=== PATIENT | male | born 1965 | race Caucasian/White ===

== ENCOUNTER 2021-10-06 12:44 | Inpatient (IN) | payer SELFPAY ==
[~2021-10-06] VITALS: Ht 175.3 cm; Wt 70.6 kg
[2021-10-06] MEDS: dilTIAZem 125mg/125ml BAG KIT 125 ML IV ONE ×2 (13:20→13:35)
[2021-10-06] MEDS ORDERED: dilTIAZem HCL 50 MG/10 ML VIAL IV ONE (13:24)
[2021-10-06] MEDS ORDERED: dilTIAZem 25 MG/5 ML VIAL IV ONE (13:30)
[2021-10-06] MEDS ORDERED: dilTIAZem 125mg/125ml BAG KIT 125 ML IV ONE (13:30)
[2021-10-06 14:24] LABS: Albumin 3.1 g/dL (3.4-5.0); Calcium 8.5 mg/dL (8.5-10.1); Potassium 3.9 mmol/L (3.5-5.1)
[2021-10-06 14:28] LABS: Bilirubin, Total 1.2 mg/dL (0.2-1.0)
[2021-10-06] MEDS ORDERED: SODIUM CHLORIDE 0.9% 500 ML IV ONE (14:30)
[2021-10-06 15:47] LABS: Basophils # (auto) 0.1 10 ^3/uL (0-0.2); Basophils % (auto) 0.4 % (0.0-2.0); Eosinophils # (auto) 0 10 ^3/uL (0-0.8); Hemoglobin 16.8 g/dL (13.5-17.5); Lymphocytes # (auto) 1.3 10 ^3/uL (0.4-5.4); Lymphocytes % (auto) 9.1 % (10.0-50.0); Mean Corpuscular Hemoglobin 27.6 pg (28.0-32.0); Mean Corpuscular Hgb Conc. 31.1 g/dL (32.0-36.0); Mean Corpuscular Volume 88.9 fL (80.0-100.0); Monocytes # (auto) 1.2 10 ^3/uL (0-1.3); Monocytes % (auto) 8.3 % (0.0-12.0); Neutrophils # (auto) 11.5 10 ^3/uL (1.6-8.6); Neutrophils % (auto) 82.2 % (37.0-80.0); Nucleated Red Blood Cells % 0.1 %; Red Blood Cells 6.08 10^6/uL (4.5-5.90); Red Cell Distribution Width 15.9 % (11.8-14.3)
[2021-10-06] MEDS ORDERED: ENOXAPARIN SOD 100 MG/1 ML SYRINGE SC ONE (21:30)
[2021-10-06] MEDS ORDERED: TEMAZEPAM 15 MG CAP PO PRN (22:00)
[2021-10-06] MEDS ORDERED: ONDANSETRON HCL 4 MG/2 ML VIAL IV PRN (22:00)
[2021-10-06] MEDS ORDERED: ALBUTEROL SULF 2.5 MG/0.5ML(0.5%) NEB SOLN NEB PRN (22:00)
[2021-10-06] MEDS ORDERED: cefTRIAXone 1GM/50ML D5W 50 ML IV ONE (22:00)
[2021-10-06] MEDS ORDERED: ACETAMINOPHEN 325 MG TAB PO PRN (22:00)
[2021-10-06] MEDS: dilTIAZem 125mg/125ml BAG KIT 100 ML IV SCH (22:21)
[2021-10-06 22:31] VITALS: BP 113/85
[2021-10-06] MEDS: ATORVASTATIN 20 MG TAB PO SCH (22:48)
[2021-10-06] MEDS ORDERED: IOHEXOL 350 MG/ML 100ML IJ ONE (23:22)
[2021-10-06] MEDS ORDERED: NITROGLYCERIN 0.4 MG SL TAB SL PRN (23:30)
[2021-10-06] MEDS ORDERED: MORPHINE SULFATE INJ 2 MG/ml SYRG IV PRN (23:30)
[2021-10-06 23:48] LABS: Lactic Acid w/Reflex 2.4 mmol/L (0.4-2.0)
[2021-10-07] VITALS (86 sets, daily range): BP systolic 87–136; BP diastolic 55–100
[2021-10-07] MEDS ORDERED: METF-370 PO (02:27)
[2021-10-07] MEDS ORDERED: BISA-65 PO (02:32)
[2021-10-07] MEDS ORDERED: POTA1TAB4 PO ×2 (02:34→02:35)
[2021-10-07] MEDS ORDERED: DIGO0.25 PO (02:36)
[2021-10-07] MEDS ORDERED: TAMS0.4C36 PO (02:36)
[2021-10-07] MEDS ORDERED: ALLO300T2 PO (02:42)
[2021-10-07] MEDS ORDERED: ATOR20TA50 PO (02:42)
[2021-10-07] MEDS ORDERED: LISI-716 PO (02:42)
[2021-10-07] MEDS ORDERED: DABI150C5 PO (02:42)
[2021-10-07] MEDS: dilTIAZem 125mg/125ml BAG KIT 100 ML IV SCH ×3 (04:02→20:51)
[2021-10-07 05:00] LABS: Basophils # (auto) 0.1 10 ^3/uL (0-0.2); Basophils % (auto) 0.6 % (0.0-2.0); Eosinophils # (auto) 0 10 ^3/uL (0-0.8); Eosinophils % (auto) 0.1 % (0.0-7.0); Hematocrit 46.8 % (41.0-53.0); Lymphocytes # (auto) 1.2 10 ^3/uL (0.4-5.4); Lymphocytes % (auto) 15.2 % (10.0-50.0); Mean Corpuscular Hemoglobin 28.3 pg (28.0-32.0); Mean Corpuscular Hgb Conc. 32.1 g/dL (32.0-36.0); Mean Corpuscular Volume 88.1 fL (80.0-100.0); Monocytes # (auto) 0.8 10 ^3/uL (0-1.3); Monocytes % (auto) 10.6 % (0.0-12.0); Neutrophils # (auto) 5.9 10 ^3/uL (1.6-8.6); Neutrophils % (auto) 73.5 % (37.0-80.0); Red Blood Cells 5.32 10^6/uL (4.5-5.90); Red Cell Distribution Width 15.5 % (11.8-14.3)
[2021-10-07 05:09] LABS: Albumin 2.7 g/dL (3.4-5.0); BUN/Creatinine Ratio 18.8; Calcium 8.6 mg/dL (8.5-10.1); Potassium 3.6 mmol/L (3.5-5.1)
[2021-10-07 05:12] LABS: Bilirubin, Total 1.1 mg/dL (0.2-1.0); Total Protein 5.8 g/dL (6.4-8.2)
[2021-10-07] MEDS: ALBUTEROL SULF HFA 90MCG INH 200DOSE IN PRN ×2 (06:17→19:10)
[2021-10-07] MEDS: cefTRIAXone 1GM/50ML D5W 50 ML IV SCH (08:55)
[2021-10-07] MEDS ORDERED: ENOXAPARIN SOD 40 MG/0.4 ML SYRINGE SC SCH ×2 (10:00→22:00)
[2021-10-07] MEDS ORDERED: DexAMETHasone SOD PHOS 10MG/1ML VIAL INJ IV ONE (10:15)
[2021-10-07] MEDS ORDERED: REMDESIVIR PER PHARMACY 0 ML IV SCH (10:15)
[2021-10-07] MEDS: ASPirin 81 mg TAB PO SCH (10:21)
[2021-10-07] MEDS: PANTOPRAZOLE 40 MG TAB PO SCH (10:22)
[2021-10-07] MEDS ORDERED: POTASSIUM EFFERVESENT TAB 25 MEQ PO ONE (14:45)
[2021-10-07] MEDS ORDERED: FUROSEMIDE 40 MG/4 ML VIAL IV ONE (14:45)
[2021-10-07] MEDS ORDERED: METOPROLOL TARTRATE 1MG/1ML-5ML VIAL IV ONE (14:45)
[2021-10-07] MEDS ORDERED: REMDESIVIR 200 MG in NS 210ml LOADING DOSE ADULT IV ONE (15:00)
[2021-10-07 15:30] LABS: Magnesium 1.9 mg/dL (1.6-2.6)
[2021-10-07] MEDS ORDERED: MAGNESIUM SULFATE 1GM/100ML 100 ML IV ONE (15:45)
[2021-10-07] MEDS ORDERED: DIGOXIN (250MCG/ML) 2 ML AMPULE IV ONE (15:45)
[2021-10-07 18:23] LABS: Alcohol, Urine < 3.0 mg/dL (0-10); Amphetamine Screen, Urine NEGATIVE (NEGATIVE); Barbiturate Scree,Urine NEGATIVE (NEGATIVE); Benzodiazephine Screen, Urine NEGATIVE (NEGATIVE); Cannabinoid Screen, Urine NEGATIVE (NEGATIVE); Cocaine Screen, Urine NEGATIVE (NEGATIVE); Opiate Scree,Urine NEGATIVE (NEGATIVE); Phencyclidine Screen, Urine NEGATIVE (NEGATIVE)
[2021-10-07] MEDS: DIGOXIN (250MCG/ML) 2 ML AMPULE IV SCH ×2 (18:53→23:30)
[2021-10-07] MEDS: ATORVASTATIN 20 MG TAB PO SCH (22:04)
[2021-10-07] MEDS: CARVEDILOL 3.125 MG TAB PO SCH (22:05)
[2021-10-07] MEDS: ENOXAPARIN SOD 150 MG/1 ML SYRINGE SC SCH (22:07)
[2021-10-08] VITALS (23 sets, daily range): BP systolic 90–174; BP diastolic 54–113
[2021-10-08] MEDS: DIGOXIN (250MCG/ML) 2 ML AMPULE IV SCH (05:00)
[2021-10-08 05:14] LABS: Basophils # (auto) 0 10 ^3/uL (0-0.2); Basophils % (auto) 0.2 % (0.0-2.0); Eosinophils # (auto) 0 10 ^3/uL (0-0.8); Hematocrit 43.4 % (41.0-53.0); Hemoglobin 13.9 g/dL (13.5-17.5); Lymphocytes # (auto) 0.7 10 ^3/uL (0.4-5.4); Lymphocytes % (auto) 10.4 % (10.0-50.0); Mean Corpuscular Hemoglobin 28.3 pg (28.0-32.0); Mean Corpuscular Hgb Conc. 31.9 g/dL (32.0-36.0); Mean Corpuscular Volume 88.7 fL (80.0-100.0); Monocytes # (auto) 0.6 10 ^3/uL (0-1.3); Neutrophils # (auto) 5.2 10 ^3/uL (1.6-8.6); Neutrophils % (auto) 80.4 % (37.0-80.0); Red Blood Cells 4.89 10^6/uL (4.5-5.90); Red Cell Distribution Width 15.9 % (11.8-14.3); White Blood Cell 6.5 10^3/uL (4.4-10.8)
[2021-10-08 05:31] LABS: Potassium 4.2 mmol/L (3.5-5.1)
[2021-10-08 05:36] LABS: BUN/Creatinine Ratio 24.4; Calcium 8.5 mg/dL (8.5-10.1)
[2021-10-08] MEDS: FUROSEMIDE 20 MG/2 ML VIAL IV SCH ×2 (06:33→18:00)
[2021-10-08] MEDS: cefTRIAXone 1GM/50ML D5W 50 ML IV SCH (09:00)
[2021-10-08] MEDS: LISINOPRIL 5 MG TAB PO SCH (10:00)
[2021-10-08] MEDS: DexAMETHasone SOD PHOS 10MG/1ML VIAL INJ IV SCH (10:00)
[2021-10-08] MEDS: PANTOPRAZOLE 40 MG TAB PO SCH (10:00)
[2021-10-08] MEDS: ASPirin 81 mg TAB PO SCH (10:00)
[2021-10-08] MEDS: ENOXAPARIN SOD 150 MG/1 ML SYRINGE SC SCH ×2 (10:00→21:22)
[2021-10-08] MEDS: DAPAGLIFLOZIN 5 MG TAB PO SCH (10:00)
[2021-10-08] MEDS: CARVEDILOL 3.125 MG TAB PO SCH ×2 (10:00→21:20)
[2021-10-08] MEDS: REMDESIVIR 100mg 100 MG in SODIUM CHL 0.9% 230 ML IV SCH (15:00)
[2021-10-08] MEDS ORDERED: DEXTROSE (50%) 50ML SYRG IV PRN (20:15)
[2021-10-08] MEDS: ATORVASTATIN 20 MG TAB PO SCH (21:21)
[2021-10-08] MEDS: ACCU-CHEK COMFORT CURVE STRIP VI SCH (21:21)
[2021-10-08] MEDS: InsuLIN REG 1unit/0.01ml Soln (100units/ml) SC SCH (21:23)
[2021-10-09] VITALS (18 sets, daily range): BP systolic 103–172; BP diastolic 53–122
[2021-10-09 05:23] LABS: Basophils # (auto) 0 10 ^3/uL (0-0.2); Basophils % (auto) 0.2 % (0.0-2.0); Eosinophils # (auto) 0 10 ^3/uL (0-0.8); Hematocrit 45.2 % (41.0-53.0); Hemoglobin 14.7 g/dL (13.5-17.5); Lymphocytes % (auto) 12.1 % (10.0-50.0); Mean Corpuscular Hemoglobin 28.5 pg (28.0-32.0); Mean Corpuscular Hgb Conc. 32.6 g/dL (32.0-36.0); Mean Corpuscular Volume 87.3 fL (80.0-100.0); Monocytes # (auto) 0.5 10 ^3/uL (0-1.3); Monocytes % (auto) 6.4 % (0.0-12.0); Neutrophils # (auto) 6.8 10 ^3/uL (1.6-8.6); Neutrophils % (auto) 81.3 % (37.0-80.0); Red Blood Cells 5.17 10^6/uL (4.5-5.90); Red Cell Distribution Width 15.4 % (11.8-14.3); White Blood Cell 8.3 10^3/uL (4.4-10.8)
[2021-10-09 05:44] LABS: Albumin 2.4 g/dL (3.4-5.0); Calcium 8.5 mg/dL (8.5-10.1); Potassium 3.8 mmol/L (3.5-5.1)
[2021-10-09 05:49] LABS: BUN/Creatinine Ratio 26.3; Bilirubin, Total 0.7 mg/dL (0.2-1.0); Total Protein 5.1 g/dL (6.4-8.2)
[2021-10-09] MEDS: InsuLIN REG 1unit/0.01ml Soln (100units/ml) SC SCH ×4 (06:39→22:16)
[2021-10-09] MEDS: ACCU-CHEK COMFORT CURVE STRIP VI SCH ×4 (06:39→22:18)
[2021-10-09] MEDS: FUROSEMIDE 20 MG/2 ML VIAL IV SCH ×2 (06:40→16:38)
[2021-10-09] MEDS ORDERED: hydrALAZINE HCL 20 MG/ML VL IV PRN (07:45)
[2021-10-09] MEDS: metFORMIN HYDROCHLORIDE 500 MG TAB PO SCH ×2 (08:55→16:38)
[2021-10-09] MEDS: cefTRIAXone 1GM/50ML D5W 50 ML IV SCH (09:00)
[2021-10-09] MEDS ORDERED: POTASSIUM CHL 20 Meq TABLET PO ONE (10:00)
[2021-10-09] MEDS: DAPAGLIFLOZIN 5 MG TAB PO SCH (10:00)
[2021-10-09] MEDS: ASPirin 81 mg TAB PO SCH (10:45)
[2021-10-09] MEDS: DexAMETHasone SOD PHOS 10MG/1ML VIAL INJ IV SCH (10:45)
[2021-10-09] MEDS: DIGOXIN 0.125 MG TAB PO SCH (10:46)
[2021-10-09] MEDS: PANTOPRAZOLE 40 MG TAB PO SCH (10:51)
[2021-10-09] MEDS: ENOXAPARIN SOD 150 MG/1 ML SYRINGE SC SCH (10:51)
[2021-10-09] MEDS: CARVEDILOL 3.125 MG TAB PO SCH ×3 (10:51→22:19)
[2021-10-09] MEDS: LISINOPRIL 5 MG TAB PO SCH (10:51)
[2021-10-09] MEDS: REMDESIVIR 100mg 100 MG in SODIUM CHL 0.9% 230 ML IV SCH (14:46)
[2021-10-09] MEDS: ALBUTEROL SULF HFA 90MCG INH 200DOSE IN PRN (18:41)
[2021-10-09] MEDS: ATORVASTATIN 20 MG TAB PO SCH (21:12)
[2021-10-09] MEDS: ENOXAPARIN SOD 120 MG/0.8 ML SYRINGE SC SCH (22:16)
[2021-10-10] VITALS (18 sets, daily range): BP systolic 111–141; BP diastolic 59–97
[2021-10-10 05:11] LABS: Basophils # (auto) 0 10 ^3/uL (0-0.2); Basophils % (auto) 0.3 % (0.0-2.0); Eosinophils # (auto) 0 10 ^3/uL (0-0.8); Hematocrit 45.1 % (41.0-53.0); Hemoglobin 14.8 g/dL (13.5-17.5); Lymphocytes # (auto) 1.1 10 ^3/uL (0.4-5.4); Lymphocytes % (auto) 13.3 % (10.0-50.0); Mean Corpuscular Hemoglobin 28.9 pg (28.0-32.0); Mean Corpuscular Hgb Conc. 32.7 g/dL (32.0-36.0); Mean Corpuscular Volume 88.2 fL (80.0-100.0); Monocytes # (auto) 0.7 10 ^3/uL (0-1.3); Monocytes % (auto) 8.4 % (0.0-12.0); Neutrophils # (auto) 6.6 10 ^3/uL (1.6-8.6); Nucleated Red Blood Cells % 0.1 %; Red Blood Cells 5.12 10^6/uL (4.5-5.90); Red Cell Distribution Width 15.5 % (11.8-14.3); White Blood Cell 8.5 10^3/uL (4.4-10.8)
[2021-10-10 05:32] LABS: Potassium 3.6 mmol/L (3.5-5.1)
[2021-10-10 05:38] LABS: BUN/Creatinine Ratio 21.4; Calcium 8.6 mg/dL (8.5-10.1)
[2021-10-10] MEDS: FUROSEMIDE 20 MG/2 ML VIAL IV SCH ×2 (06:23→18:00)
[2021-10-10] MEDS: InsuLIN REG 1unit/0.01ml Soln (100units/ml) SC SCH ×4 (06:23→21:50)
[2021-10-10] MEDS: ACCU-CHEK COMFORT CURVE STRIP VI SCH ×4 (06:24→21:47)
[2021-10-10] MEDS: metFORMIN HYDROCHLORIDE 500 MG TAB PO SCH ×2 (09:08→18:00)
[2021-10-10] MEDS: cefTRIAXone 1GM/50ML D5W 50 ML IV SCH (09:09)
[2021-10-10] MEDS ORDERED: REMDESIVIR 100mg 100 MG in SODIUM CHL 0.9% 230 ML IV SCH (12:00)
[2021-10-10] MEDS ORDERED: DIGO1TAB48 PO (12:08)
[2021-10-10] MEDS ORDERED: CAR3125T PO (12:08)
[2021-10-10] MEDS ORDERED: FURO1TAB33 PO (12:09)
[2021-10-10] MEDS ORDERED: LISI-275 PO (12:09)
[2021-10-10] MEDS ORDERED: ASPI1TAB20 PO (12:10)
[2021-10-10] MEDS: REMDESIVIR 100mg 100 MG in SODIUM CHL 0.9% 230 ML IV SCH (14:33)
[2021-10-10] MEDS: DexAMETHasone SOD PHOS 10MG/1ML VIAL INJ IV SCH (15:34)
[2021-10-10] MEDS: DAPAGLIFLOZIN 5 MG TAB PO SCH (15:34)
[2021-10-10] MEDS: ASPirin 81 mg TAB PO SCH (15:34)
[2021-10-10] MEDS: PANTOPRAZOLE 40 MG TAB PO SCH (15:35)
[2021-10-10] MEDS: DIGOXIN 0.125 MG TAB PO SCH (15:35)
[2021-10-10] MEDS: LISINOPRIL 5 MG TAB PO SCH (15:36)
[2021-10-10] MEDS: ENOXAPARIN SOD 120 MG/0.8 ML SYRINGE SC SCH ×2 (15:37→21:47)
[2021-10-10] MEDS: ATORVASTATIN 20 MG TAB PO SCH (21:46)
[2021-10-10] MEDS: CARVEDILOL 3.125 MG TAB PO SCH (21:47)
[2021-10-11] VITALS: BP_SYST 111; BP_SYST 123; BP_DIAS 59; BP_DIAS 80
[2021-10-11 02:00] VITALS: BP 118/55
[2021-10-11 04:00] VITALS: BP_SYST 112; BP_SYST 118; BP_DIAS 55; BP_DIAS 59
[2021-10-11 04:07] LABS: Basophils # (auto) 0 10 ^3/uL (0-0.2); Basophils % (auto) 0.3 % (0.0-2.0); Eosinophils # (auto) 0 10 ^3/uL (0-0.8); Eosinophils % (auto) 0.1 % (0.0-7.0); Hematocrit 49.3 % (41.0-53.0); Hemoglobin 15.8 g/dL (13.5-17.5); Lymphocytes # (auto) 1.5 10 ^3/uL (0.4-5.4); Lymphocytes % (auto) 15.1 % (10.0-50.0); Mean Corpuscular Hemoglobin 28.1 pg (28.0-32.0); Mean Corpuscular Volume 87.6 fL (80.0-100.0); Monocytes # (auto) 0.8 10 ^3/uL (0-1.3); Monocytes % (auto) 8.4 % (0.0-12.0); Neutrophils # (auto) 7.4 10 ^3/uL (1.6-8.6); Neutrophils % (auto) 76.1 % (37.0-80.0); Red Blood Cells 5.63 10^6/uL (4.5-5.90); Red Cell Distribution Width 15.4 % (11.8-14.3); White Blood Cell 9.7 10^3/uL (4.4-10.8)
[2021-10-11 04:37] LABS: Potassium 3.7 mmol/L (3.5-5.1)
[2021-10-11 04:49] LABS: Albumin 2.4 g/dL (3.4-5.0); BUN/Creatinine Ratio 24.3; Bilirubin, Total 0.5 mg/dL (0.2-1.0); Calcium 8.7 mg/dL (8.5-10.1)
[2021-10-11 06:00] VITALS: BP 128/94
[2021-10-11] MEDS: FUROSEMIDE 20 MG/2 ML VIAL IV SCH (06:14)
[2021-10-11] MEDS: ACCU-CHEK COMFORT CURVE STRIP VI SCH ×2 (06:15→11:30)
[2021-10-11] MEDS: InsuLIN REG 1unit/0.01ml Soln (100units/ml) SC SCH ×2 (06:15→11:30)
[2021-10-11 08:00] VITALS: BP 128/88
[2021-10-11] MEDS: metFORMIN HYDROCHLORIDE 500 MG TAB PO SCH (08:01)
[2021-10-11] MEDS: cefTRIAXone 1GM/50ML D5W 50 ML IV SCH (08:01)
[2021-10-11] MEDS: ASPirin 81 mg TAB PO SCH (09:53)
[2021-10-11] MEDS: DIGOXIN 0.125 MG TAB PO SCH (09:54)
[2021-10-11] MEDS: PANTOPRAZOLE 40 MG TAB PO SCH (09:54)
[2021-10-11] MEDS: CARVEDILOL 3.125 MG TAB PO SCH (09:55)
[2021-10-11] MEDS: DAPAGLIFLOZIN 5 MG TAB PO SCH (09:55)
[2021-10-11] MEDS: LISINOPRIL 5 MG TAB PO SCH (09:56)
[2021-10-11] MEDS: DexAMETHasone SOD PHOS 10MG/1ML VIAL INJ IV SCH (09:56)
[2021-10-11] MEDS: ENOXAPARIN SOD 120 MG/0.8 ML SYRINGE SC SCH (09:56)
[2021-10-11] MEDS: REMDESIVIR 100mg 100 MG in SODIUM CHL 0.9% 230 ML IV SCH (10:15)
[2021-10-11 11:56] VITALS: BP 126/84
[2021-10-11] MEDS: APIXABAN 5 MG TAB PO SCH ×2 (12:25→12:31)
[2021-10-11] MEDS ORDERED: ENOXAPARIN SOD 80 MG/0.8ML SYRINGE SC SCH (22:00)
== END 2021-10-11 14:31 | disposition left against medical advice (07) | DRG 177 ==
LOC: ER 12:44 → TELE 23:21 → DOU IN ICU 23:48
PROVIDERS: ADMIT Nurse Practitioner; ATTEND Internal Medicine Pulmonary Disease
PROC: XW033E5 Introduction of Remdesivir Anti-infective into Peripheral Vein, Percutaneous Approach, New Technology Group 5 (ICD-10-PCS; principal; 2021-10-07)
DX: U07.1 COVID-19 (principal); I21.4 Non-ST elevation (NSTEMI) myocardial infarction; I50.23 Acute on chronic systolic (congestive) heart failure; J12.82 Pneumonia due to coronavirus disease 2019; J96.01 Acute respiratory failure with hypoxia; J81.0 Acute pulmonary edema; I48.20 Chronic atrial fibrillation, unspecified; I11.0 Hypertensive heart disease with heart failure; Z85.51 Personal history of malignant neoplasm of bladder; E66.01 Morbid (severe) obesity due to excess calories; N40.0 Benign prostatic hyperplasia without lower urinary tract symptoms; E78.5 Hyperlipidemia, unspecified; E11.65 Type 2 diabetes mellitus with hyperglycemia; Z82.49 Family history of ischemic heart disease and other diseases of the circulatory system; Z68.23 Body mass index [BMI] 23.0-23.9, adult; Z79.84 Long term (current) use of oral hypoglycemic drugs
CPT/HCPCS: 36415; 71045; 71275; 80048; 80053; 80061; 80162; 80307; 82306; 82728; 82962; 83036; 83605; 83735; 83880; 84443; 84484; 85025; 85379; 87040; 87070; 87081; 87086; 87205; 93005; 93306; 93970; 94640; 96365; 96367; 96372; 96375; 99291; G0378; J0696; J1100

== ENCOUNTER 2021-11-11 02:13 | Emergency (ER) | payer SELFPAY ==
[~2021-11-11] VITALS: Ht 175.3 cm; Wt 113.6 kg
[~2021-11-11 02:13] MED LIST: ALLO300T2 PO; ASPI1TAB20 PO; ATOR20TA50 PO; BISA-65 PO; CAR3125T PO; DABI150C5 PO; DIGO0.25 PO; DIGO1TAB48 PO; FURO1TAB33 PO; LISI-275 PO; LISI-716 PO; METF-370 PO; POTA1TAB4 PO; TAMS0.4C36 PO
[2021-11-11 02:48] VITALS: BP 139/87
[2021-11-11] MEDS ORDERED: DIGO0.12 PO (03:58)
== END 2021-11-11 04:11 | disposition home or self-care (01) ==
LOC: ER 02:13
DX: I48.91 Unspecified atrial fibrillation (principal); E11.9 Type 2 diabetes mellitus without complications; I10 Essential (primary) hypertension; Z79.899 Other long term (current) drug therapy